=== PATIENT | female | born 1965 | race Caucasian/White ===

== ENCOUNTER 2023-08-05 11:25 | Outpatient (CLI) | payer OTHER, SELFPAY ==
[2023-08-05 17:54] LABS: Basophils Absolute Auto 0.1 K/mm3 (0.0-0.1); Basophils Percent Auto 0.8 % (0.2-1.2); Eosinophils Absolute Auto 0.2 K/mm3 (0-0.3); Eosinophils Percent Auto 2.1 % (0-4.4); Hematocrit 50.3 % (37.0-47.0); Hemoglobin 17.1 g/dL (12.0-15.0); Immature Granulocyte Absolute 0.03 K/mm3 (0.00-0.031); Immature Granulocyte Percent A 0.4 % (0-0.5); Immature Platelet Fraction Pct 3.6 % (0.9-11.2); Lymphocytes Absolute Auto 4.19 K/mm3 (0.9-3.2); Lymphocytes Percent Auto 49.3 % (18.3-44.2); Mean Corpuscular Hemoglobin 31.7 pg (26-34); Mean Corpuscular Volume 93.1 fl (80-100); Monocytes Absolute Auto 0.6 K/mm3 (0.1-0.6); Monocytes Percent Auto 6.7 % (2.6-8.5); Neutrophils Absolute Auto 3.5 K/mm3 (1.3-6.7); Neutrophils Percent Auto 40.7 % (45.5-73.1); Platelet Count Result 283 k/mm3 (150-375); Red Cell Distribution Width 12.5 % (11.5-14.5); White Blood Count 8.5 K/mm3 (4.5-10.0)
[2023-08-05 17:59] LABS: Rheumatoid Factor < 12.0 IU/ML (<12)
[2023-08-05 18:06] LABS: Alanine Aminotransferase 63 U/L (6-35); Albumin Level 4.4 g/dL (3.5-5.1); Alkaline Phosphatase 90 U/L (38-126); Anion Gap 9 mmol/L (8-16); Aspartate Amino Transferase 46 U/L (14-36); Blood Urea Nitrogen 20 mg/dL (7-17); Calcium 9.5 mg/dL (8.4-10.2); Carbon Dioxide 22 mmol/L (22-30); Chloride 107 mmol/L (98-107); Cholesterol 233 mg/dL (0-200); Estimated Glomerular Filt Rate > 60; Glucose 90 mg/dL (65-110); HDL Direct 43 mg/dL; Potassium 4.6 mmol/L (3.4-5.0); Sodium 138 mmol/L (137-145); Triglycerides 177 mg/dL (<150)
[2023-08-05 18:18] LABS: LDL Cholesterol Direct 164 mg/dL
[2023-08-05 18:33] LABS: Hemoglobin A1C 5.7 % (<5.7)
[2023-08-09 02:08] LABS: Vitamin D 1,25 (OH)2 Total 40 pg/mL (18-72); Vitamin D2 1,25 (OH)2 <8 pg/mL; Vitamin D3 1,25 (OH)2 40 pg/mL
[2023-08-10 07:37] LABS: Lupus dRVVT Screen 33 sec (<=45); PTT-LA Screen 38 sec (<=40)
[2023-08-10 09:12] LABS: CRP, High Sensitivity 2.9 mg/L (***)
== END 2023-08-05 11:26 | disposition home or self-care (01) ==
LOC: ANHGOSHLAB 11:27
PROVIDERS: PCP Family Medicine; Visit Provider Nurse Practitioner Family
DX: E78.5 Hyperlipidemia, unspecified (principal); E55.9 Vitamin D deficiency, unspecified; E03.9 Hypothyroidism, unspecified; E11.9 Type 2 diabetes mellitus without complications; M25.50 Pain in unspecified joint
CPT/HCPCS: 36415; 80053; 80061; 82652; 83036; 84443; 85025; 85055; 85613; 85730; 86141; 86430

== ENCOUNTER 2023-10-21 09:52 | Outpatient (CLI) | payer OTHER, SELFPAY ==
[2023-10-21 20:42] LABS: Free T4 Free Thyroxine 1.94 ng/mL (0.78-2.19)
[2023-10-21 20:54] LABS: Thyroid Stimulating Hormone 0.104 uIU/mL (0.465-4.680)
[2023-10-23 10:59] LABS: Triiodothyronine T3 Free 3.4 pg/mL (2.3-4.2)
== END 2023-10-21 09:53 | disposition home or self-care (01) ==
LOC: ANHGOSHLAB 09:53
PROVIDERS: PCP Family Medicine; Visit Provider Nurse Practitioner Family
DX: Z00.00 Encounter for general adult medical examination without abnormal findings (principal); R79.89 Other specified abnormal findings of blood chemistry
CPT/HCPCS: 36415; 84439; 84443; 84481

== ENCOUNTER 2025-03-22 11:29 | Outpatient (CLI) | payer BC, SELFPAY | END 2025-03-22 11:30 | disposition home or self-care (01) | LOC: ANHGOSHLAB 11:29 | PROVIDERS: PCP Nurse Practitioner Family; Visit Provider Nurse Practitioner Family | DX: E03.9 Hypothyroidism, unspecified (principal); R73.01 Impaired fasting glucose; E55.9 Vitamin D deficiency, unspecified; I10 Essential (primary) hypertension | CPT/HCPCS: 36415 ==